=== PATIENT | male | born 1995 | race Caucasian/White ===

== ENCOUNTER 2016-08-25 01:19 | Emergency (ER) | payer BC ==
[2016-08-25 01:28] VITALS: BP 153/88
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
[2016-08-25] MEDS ORDERED: Metoclopramide 10 MG/2 ML SDV IVPUSH ONE (01:47)
[2016-08-25] MEDS ORDERED: HYDROmorphone 1 MG/ML Syringe IVPUSH ONE (01:47)
[2016-08-25] MEDS ORDERED: Acetaminophen 325 MG Tab PO ONE (01:47)
[2016-08-25] MEDS ORDERED: Ketorolac 30 MG/ML SDV IVPUSH SCH (02:00)
[2016-08-25] MEDS ORDERED: Dextrose 5%-0.9% NaCl 1,000 ML IV SCH (02:00)
[2016-08-25] MEDS ORDERED: Acetaminophen/oxyCODONE 325-5 MG Tab ONE (03:31)
--- NOTE | 2016-08-25 07:05 | CR ---
Chest: Portable view of the chest was obtained. Comparison: No previous study. Heart size and mediastinum are within normal limits for portable technique. Lungs are clear with no acute infiltrates. Bony structures are grossly intact. Impression: 1. No acute intrathoracic process is seen on portable chest x-ray. Diagnostic code #1
== END 2016-08-25 03:34 | disposition home or self-care (01) ==
LOC: JD.ED 01:19
DX: R51 Headache (principal); B34.9 Viral infection, unspecified
CPT/HCPCS: 36415; 71010; 80053; 83690; 84484; 85025; 86140; 86308; 87804; 93005; 96361; 96374; 96375; 99284; A9270; J1170; J1885; J2765; J7042

== ENCOUNTER 2016-10-07 20:36 | Emergency (ER) | payer BC ==
[2016-10-07 20:50] VITALS: BP 130/80
[2016-10-07] MEDS ORDERED: Sodium Chloride 0.9% 1,000 ML IV STA (21:01)
[2016-10-07] MEDS ORDERED: Sodium Chloride 0.9% 10 ML Syringe FLUSH PRN (21:01)
[2016-10-07] MEDS ORDERED: Ketorolac 30 MG/ML SDV IVPUSH ONE (21:06)
--- NOTE | 2016-10-07 21:14 | EDM.PDOC ---
ED HPI GENERAL MEDICAL PROBLEM - General Chief Complaint: General Stated Complaint: FEVER CHILLS COUGH Time Seen by Provider: 10/07/16 20:46 Source of Information: Reports: Patient History Limitations: Reports: No Limitations - History of Present Illness INITIAL COMMENTS - FREE TEXT/NARRATIVE: The patient presents with generalized weakness, fever and cough. He has not felt well for a few weeks. He has a fever and it was 100.2 today, productive cough, sore throat and gum pain, chest tightness, left sided abdominal pain at times and right foot pain. About 2 months ago he stepped on a akshat nail and was treated here and he still has pain. He has not been around anyone who is sick. He has no diarrhea or dysuria. He has on joint pain or muscle aches. He smokes sometimes. He has no medical problems but he says over this past year he has been more sick then ever before. Onset: Gradual Duration: Week(s): (2) Location: Reports: Abdomen, Other (throat) Quality: Reports: Burning Severity: Moderate Improves with: Reports: None Worsens with: Reports: None Associated Symptoms: Reports: Cough, cough w sputum, Fever/Chills, Nausea/ Vomiting. Denies: Shortness of Breath Headache Pain Score (Numeric/FACES): 5 - Related Data Allergies Allergy/AdvReac Type Severity Reaction Status Date / Time No Known Allergies Allergy Verified 10/07/16 20:50 Home Meds: Home Meds Codeine/Promethazine [Phenergan with Codeine] 5 - 10 ml PO Q6HR PRN #300 ml [Rx] Doxycycline [Vibramycin] 100 mg PO BID #20 cap 10/07/16 [Rx] Past Medical History - Past Health History Medical/Surgical History: Denies Medical/Surgical History Social & Family History - Family History Family Medical History: Noncontributory - Tobacco Use Smoking Status *Q: Current Some Day Smoker Years of Tobacco use: 5 Packs/Tins Daily: 0.1 Used Tobacco, but Quit: No - Caffeine Use Caffeine Use: Reports: None - Recreational Drug Use Recreational Drug Use: No - Living Situation & Occupation Living situation: Reports: Single Occupation: Employed ED ROS GENERAL - Review of Systems Review Of Systems: See Below Constitutional: Reports: Fever, Chills, Malaise, Weakness HEENT: Reports: Dental Pain, Throat Pain Respiratory: Reports: Cough, Sputum. Denies: Shortness of Breath Cardiovascular: Reports: No Symptoms Endocrine: Reports: No Symptoms GI/Abdominal: Reports: Abdominal Pain, Nausea. Denies: Diarrhea, Vomiting : Reports: No Symptoms Musculoskeletal: Reports: No Symptoms Skin: Reports: No Symptoms ED EXAM, GENERAL - Physical Exam Exam: See Below Exam Limited By: No Limitations General Appearance: Alert, No Apparent Distress Ears: Normal External Exam, Normal Canal, Normal TMs Nose: Normal Inspection Throat/Mouth: Other (Moderte tonsilar edema and erythema with pharyngeal erythema) Head: Atraumatic, Normocephalic Neck: Lymphadenopathy (L), Lymphadenopathy (R) Respiratory/Chest: No Respiratory Distress, Lungs Clear, Normal Breath Sounds Cardiovascular: Regular Rate, Rhythm, No Edema, No Murmur GI/Abdominal: Soft, Non-Tender, No Organomegaly, No Mass Back Exam: Normal Inspection Extremities: Other (Scar to the instep of his right foot. Good sensation and pulses distally.) Neurological: Alert, Oriented, No Motor/Sensory Deficits Course - Vital Signs Last Recorded V/S: Last Vital Signs Temp 100.2 F 10/07/16 20:45 Pulse 91 10/07/16 20:45 Resp 18 10/07/16 20:45 BP 130/80 10/07/16 20:45 Pulse Ox 98 10/07/16 20:45 - Orders/Labs/Meds Orders: Active Orders 24 hr Category Date Time Status Peripheral IV Care [RC] . DIRECTED Care 10/07/16 21:05 Active Chest 2V [CR] Stat Exams 10/07/16 21:01 Taken Foot Comp Min 3V Rt [CR] Stat Exams 10/07/16 21:07 Taken CULTURE STREP A CONFIRMATION [RM] Stat Lab 10/07/16 21:26 Results STREP SCRN A RAPID W CULT CONF [RM] Stat Lab 10/07/16 21:26 Results Sodium Chloride 0.9% [Saline Flush] Med 10/07/16 21:01 Active 10 ml FLUSH ASDIRECTED PRN Peripheral IV Insertion Adult [OM.PC] Stat Oth 10/07/16 21:01 Ordered Medication Orders Sodium Chloride (Saline Flush) 10 ml FLUSH ASDIRECTED PRN PRN Reason: Keep Vein Open Last Admin: 10/07/16 21:27 Dose: 10 ml Labs: Laboratory Tests 10/07/16 10/07/16 10/07/16 Range/Units 21:26 21:26 21:26 WBC 9.08 H (4.23-9.07) K/mm3 RBC 4.81 (4.63-6.08) M/mm3 Hgb 15.2 (13.7-17.5) gm/L Hct 44.4 (40.1-51.0) % MCV 92.3 H (79.0-92.2) fl MCH 31.6 (25.7-32.2) pg MCHC 34.2 (32.2-35.5) g/dl RDW Std Deviation 44.0 H (35.1-43.9) fL Plt Count 177 (163-337) K/mm3 MPV 9.7 (9.4-12.3) fl Neut % (Auto) 57.2 (34.0-67.9) % Lymph % (Auto) 24.3 (21.8-53.1) % Bertie % (Auto) 18.0 H (5.3-12.2) % Eos % (Auto) 0.1 L (0.8-7.0) Baso % (Auto) 0.2 (0.1-1.2) % Neut # (Auto) 5.19 (1.78-5.38) K/mm3 Lymph # (Auto) 2.21 (1.32-3.57) K/mm3 Bertie # (Auto) 1.63 H (0.30-0.82) K/mm3 Eos # (Auto) 0.01 L (0.04-0.54) K/mm3 Baso # (Auto) 0.02 (0.01-0.08) K/mm3 Manual Slide Review Abnormal smear Sodium 135 L (136-145) mEq/L Potassium 4.1 (3.5-5.1) mEq/L Chloride 100 (98-107) mEq/L Carbon Dioxide 24 (21-32) mEq/L Anion Gap 15.1 H (5-15) BUN 16 (7-18) mg/dL Creatinine 1.1 (0.7-1.3) mg/dL Est Cr Clr Drug Dosing TNP Estimated GFR (MDRD) > 60 (>60) mL/min BUN/Creatinine Ratio 14.5 (14-18) Glucose 83 (74-106) mg/dL Calcium 8.3 L (8.5-10.1) mg/dL Total Bilirubin 0.5 (0.2-1.0) mg/dL AST 35 (15-37) U/L ALT 42 (16-63) U/L Alkaline Phosphatase 75 (46-116) U/L C-Reactive Protein 4.7 H* (<1.0) mg/dL Total Protein 7.7 (6.4-8.2) g/dl Albumin 3.8 (3.4-5.0) g/dl Globulin 3.9 gm/dL Albumin/Globulin Ratio 1.0 (1-2) Monoscreen Negative (NEGATIVE) Meds: Medications Generic Name Dose Route Start Last Admin Trade Name Freq PRN Reason Stop Dose Admin Sodium Chloride 10 ml 10/07/16 21:01 10/07/16 21:27 Saline Flush FLUSH 10 ml ASDIRECTED PRN Administration Keep Vein Open Discontinued Medications Generic Name Dose Route Start Last Admin Trade Name Freq PRN Reason Stop Dose Admin Sodium Chloride 1,000 mls @ 1,000 mls/hr 10/07/16 21:01 10/07/16 21:26 Normal Saline IV 10/07/16 22:00 1,000 mls/hr .BOLUS STA Administration Ketorolac Tromethamine 30 mg 10/07/16 21:06 10/07/16 21:28 Toradol IVPUSH 10/07/16 21:07 30 mg ONETIME ONE Administration - Re-Assessments/Exams Free Text/Narrative Re-Assessment/Exam: 10/07/16 21:14 I ordered an IV NS 1L bolus, toradol 30mg IV, labs, CXR, right foot x-ray, mono and strep. 10/07/16 22:11 He vomited in radiology when getting his x-ray. He feels better now. His WBC was a little elevated at 9.08. His Na was a little low at 135. His CRP was elevated at 4.7. His mono was negative. His strep was negative. His foot x- ray shows no sign of osteomyolitis. His CXR shows no pneumonia. He has bronchitis and pharyngitis. I will get him on some doxycycline and phenergan with codiene. Departure - Departure Time of Disposition: 22:15 Disposition: Home, Self-Care 01 Condition: Good Clinical Impression: Bronchitis Pharyngitis Qualifiers: Pharyngitis/tonsillitis etiology: other specified organisms Qualified Code(s): J02.8 - Acute pharyngitis due to other specified organisms - Discharge Information Prescriptions: Codeine/Promethazine [Phenergan with Codeine] 5 - 10 ml PO Q6HR PRN #300 ml PRN Reason: Cough Doxycycline [Vibramycin] 100 mg PO BID #20 cap Referrals: Robina Weeks [Physician] - 1 Week (If not better) Forms: ED Department Discharge Additional Instructions: Take the doxycycline 100mg 2 times per day for 10 days. Take the phenergan with codeine 5 to 10mls every 6 hours as needed for a cough. Drink plenty of fluids. Follow up with Dr Weeks in 1 week if not better. Please return if you are worse. - My Orders Last 24 Hours: My Active Orders 10/07/16 21:01 Chest 2V [CR] Stat Sodium Chloride 0.9% [Saline Flush] 10 ml FLUSH ASDIRECTED PRN Peripheral IV Insertion Adult [OM.PC] Stat 10/07/16 21:05 Peripheral IV Care [RC] . DIRECTED 10/07/16 21:07 Foot Comp Min 3V Rt [CR] Stat 10/07/16 21:26 CULTURE STREP A CONFIRMATION [RM] Stat STREP SCRN A RAPID W CULT CONF [] Stat - Assessment/Plan Last 24 Hours: My Active Orders 10/07/16 21:01 Chest 2V [CR] Stat Sodium Chloride 0.9% [Saline Flush] 10 ml FLUSH ASDIRECTED PRN Peripheral IV Insertion Adult [OM.PC] Stat 10/07/16 21:05 Peripheral IV Care [RC] . DIRECTED 10/07/16 21:07 Foot Comp Min 3V Rt [CR] Stat 10/07/16 21:26 CULTURE STREP A CONFIRMATION [RM] Stat STREP SCRN A RAPID W CULT CONF [RM] Stat
--- NOTE | 2016-10-08 07:46 | CR ---
Chest: Two views of the chest were obtained. Comparison: Previous chest x-ray of 08/25/16. Heart size and mediastinum are normal. Lungs are clear. Bony structures are unremarkable. Impression: 1. Nothing acute is identified on two-view chest x-ray. Diagnostic code #1
--- NOTE | 2016-10-08 08:21 | CR ---
Right foot: Four views of the right foot were obtained. Comparison: No previous study. Joint spaces are maintained. No fracture, dislocation or other bony abnormality is seen. Small soft tissue injury seen near the ball of the foot. No opaque foreign body is seen. Impression: 1. Small soft tissue defect near the ball of the foot. Please correlate. 2. No bony abnormality is seen. No opaque foreign object is identified. Diagnostic code #2
== END 2016-10-07 22:43 | disposition home or self-care (01) ==
LOC: JD.ED 20:36
DX: J40 Bronchitis, not specified as acute or chronic (principal); J02.8 Acute pharyngitis due to other specified organisms; F17.210 Nicotine dependence, cigarettes, uncomplicated
CPT/HCPCS: 36415; 71020; 73630; 80053; 85025; 86140; 86308; 87081; 87430; 96361; 96374; 99284; J1885; J7040; J7050

== ENCOUNTER 2018-10-19 05:12 | Emergency (ER) | payer BC ==
[2018-10-19 05:27] VITALS: BP 134/77
[2018-10-19] MEDS ORDERED: Loperamide 2 MG Cap PO STA (05:39)
[2018-10-19] MEDS ORDERED: Ondansetron 4 MG/2 ML SDV IVPUSH ONE (05:40)
[2018-10-19] MEDS ORDERED: Lactated Ringers 1,000 ML IV ONE (05:40)
--- NOTE | 2018-10-19 05:46 | EDM.PDOC ---
ED HPI GENERAL MEDICAL PROBLEM - General Chief Complaint: Gastrointestinal Problem Stated Complaint: diarrhea Time Seen by Provider: 10/19/18 05:23 Source of Information: Reports: Patient, Family (), RN Notes Reviewed History Limitations: Reports: No Limitations - History of Present Illness INITIAL COMMENTS - FREE TEXT/NARRATIVE: The patient states that both he and his developed nausea, vomiting, and watery diarrhea about one week ago. Their symptoms lasted for only about 24 hours before resolving. The patient's 's symptoms were severe enough that she was seen in an ER, although the patient was not, and the patient did not take any [id number] medications to treat his symptoms. The patient states that he then developed watery, non-bloody diarrhea about 48 hours ago. His , this time, did not. He developed central abdominal burning and crampiness last night, along with nausea and lightheadedness, particularly when upright. No emesis thus far. No recent fever. The patient states that he ate some sandwiches that had been left out in the sun all day just prior to the onset of his most recent symptoms. No recent antibiotics. No recent travel. No prior similar symptoms. The patient states that he has a PCP, but he does not recall his name. Lower Abdomen Pain Score (Numeric/FACES): 5 - Related Data Allergies Allergy/AdvReac Type Severity Reaction Status Date / Time No Known Allergies Allergy Verified 10/19/18 05:28 Home Meds: Home Meds Ondansetron [Zofran ODT] 1 tab PO Q8H PRN #10 tab.dis 10/19/18 [Rx] Past Medical History - Past Surgical History HEENT Surgical History: Reports: Oral Surgery (wisdom teeth extraction) Social & Family History - Family History Family Medical History: Noncontributory - Tobacco Use Smoking Status *Q: Former Smoker Years of Tobacco use: 8 Packs/Tins Daily: 1 Month/Year Tobacco Last Used: Quit July 2018 - Caffeine Use Caffeine Use: Reports: Coffee, Energy Drinks, Soda - Alcohol Use Alcohol Use History: Yes Alcohol Use Frequency: Rarely - Recreational Drug Use Recreational Drug Use: No - Living Situation & Occupation Living situation: Reports: , with Spouse, with Family (2 kids) Occupation: Employed ([employer]) ED ROS GENERAL - Review of Systems Review Of Systems: ROS reveals no pertinent complaints other than HPI. ED EXAM, GI/ABD - Physical Exam Exam: See Below Exam Limited By: No Limitations General Appearance: Alert, WD/WN, No Apparent Distress Eyes: Bilateral: Normal Appearance, EOMI Ears: Normal External Exam, Hearing Grossly Normal Nose: Normal Inspection Throat/Mouth: Normal Inspection, Normal Lips, Normal Voice, No Airway Compromise Head: Atraumatic, Normocephalic Neck: Normal Inspection, Full Range of Motion Respiratory/Chest: No Respiratory Distress, Lungs Clear, Normal Breath Sounds, No Accessory Muscle Use Cardiovascular: Normal Peripheral Pulses, Regular Rate, Rhythm, No Edema, No Gallop, No JVD, No Murmur, No Rub GI/Abdominal Exam: Normal Bowel Sounds, Soft, No Organomegaly, No Distention, No Abnormal Bruit, No Mass, Tender (mild - palpation primarily induces the urge to defecate) (Male) Exam: Deferred Rectal (Males) Exam: Deferred Back Exam: Normal Inspection, Full Range of Motion. No: CVA Tenderness (L), CVA Tenderness (R) Extremities: Normal Inspection, Normal Range of Motion, No Pedal Edema, Normal Capillary Refill Neurological: Alert, Oriented, Normal Cognition, No Motor/Sensory Deficits Psychiatric: Normal Affect Skin Exam: Warm, Dry, Intact, Normal Color, No Rash Course - Vital Signs Last Recorded V/S: Last Vital Signs Temp 36.0 C 10/19/18 05:20 Pulse 68 10/19/18 05:20 Resp 16 10/19/18 05:20 BP 134/77 10/19/18 05:20 Pulse Ox 93 L 10/19/18 05:20 Orthostatic Blood Pressure [ 126/78 Supine] Orthostatic Blood Pressure [ 122/78 Standing] - Orders/Labs/Meds Orders: Active Orders 24 hr Category Date Time Status Orthostatic Vital Signs [RC] STAT Care 10/19/18 05:30 Active Orthostatic Vital Signs [RC] STAT Care 10/19/18 05:39 Active CBC WITH MANUAL DIFF [HEME] Stat Lab 10/19/18 05:45 Results Lactated Ringers [Ringers, Lactated] 1,000 ml Med 10/19/18 05:40 Active IV .BOLUS Medication Orders Lactated Ringer's (Ringers, Lactated) 1,000 mls @ 999 mls/hr IV .BOLUS ONE Stop: 10/19/18 06:40 Last Admin: 10/19/18 05:50 Dose: 999 mls/hr Labs: Laboratory Tests 10/19/18 10/19/18 Range/Units 05:45 05:45 WBC 8.11 (4.23-9.07) K/mm3 RBC 5.31 (4.63-6.08) M/mm3 Hgb 16.1 (13.7-17.5) gm/L Hct 47.1 (40.1-51.0) % MCV 88.7 D (79.0-92.2) fl MCH 30.3 (25.7-32.2) pg MCHC 34.2 (32.2-35.5) g/dl RDW Std Deviation 42.7 (35.1-43.9) fL Plt Count 310 D (163-337) K/mm3 MPV 9.6 (9.4-12.3) fl Sodium 139 (136-145) mEq/L Potassium 3.6 (3.5-5.1) mEq/L Chloride 103 (98-107) mEq/L Carbon Dioxide 27 (21-32) mEq/L Anion Gap 12.6 (5-15) BUN 20 H (7-18) mg/dL Creatinine 1.2 (0.7-1.3) mg/dL Est Cr Clr Drug Dosing 109.41 mL/min Estimated GFR (MDRD) > 60 (>60) mL/min BUN/Creatinine Ratio 16.7 (14-18) Glucose 109 H (74-106) mg/dL Calcium 9.3 (8.5-10.1) mg/dL Magnesium 1.9 (1.8-2.4) mg/dl Total Bilirubin 0.3 (0.2-1.0) mg/dL AST 37 (15-37) U/L ALT 118 H (16-63) U/L Alkaline Phosphatase 101 (46-116) U/L Total Protein 7.6 (6.4-8.2) g/dl Albumin 4.2 (3.4-5.0) g/dl Globulin 3.4 gm/dL Albumin/Globulin Ratio 1.2 (1-2) Meds: Medications Generic Name Dose Route Start Last Admin Trade Name Freq PRN Reason Stop Dose Admin Lactated Ringer's 1,000 mls @ 999 mls/hr 10/19/18 05:40 10/19/18 05:50 Ringers, Lactated IV 10/19/18 06:40 999 mls/hr .BOLUS ONE Administration Discontinued Medications Generic Name Dose Route Start Last Admin Trade Name Russ PRN Reason Stop Dose Admin Loperamide HCl 4 mg 10/19/18 05:39 10/19/18 05:51 Imodium PO 10/19/18 05:40 4 mg ONETIME STA Administration Ondansetron HCl 4 mg 10/19/18 05:40 10/19/18 05:51 Zofran IVPUSH 10/19/18 05:41 4 mg ONETIME ONE Administration - Re-Assessments/Exams Free Text/Narrative Re-Assessment/Exam: 10/19/18 05:41 With the patient's history of eating some sandwiches that had been left out in the sun all day just before the onset of his symptoms, I think the likelihood is high that the patient is suffering from gastroenteritis due to a bacterial toxin. Antibiotics are not indicated. The patient is orthostatic, therefore we will give him a liter of IV fluid before rechecking his orthostatics. I will also check some blood work, to make sure that he has not suffered any significant electrolyte abnormalities. In the meantime, he will receive some loperamide and Zofran. 10/19/18 06:33 Following 1 L of IV fluid, the patient is no longer orthostatic. The patient's CBC is unremarkable. His CMP is unremarkable. His magnesium level is within normal limits. I will discharge the patient home with a prescription for Zofran, along with dietary advice. Loperamide is available [id number]. Departure - Departure Time of Disposition: 06:39 Disposition: Home, Self-Care 01 Condition: Good Clinical Impression: Gastroenteritis - Discharge Information *PRESCRIPTION DRUG MONITORING PROGRAM REVIEWED*: Not Applicable *COPY OF PRESCRIPTION DRUG MONITORING REPORT IN PATIENT CARL: Not Applicable Referrals: PCP,None [Primary Care Provider] - Forms: ED Department Discharge Additional Instructions: You were seen in the emergency room for nausea, watery diarrhea, and dizziness when upright, for the last 48 hours. Workup in the ER included blood work and positional blood pressure checks. Your blood work was unremarkable, indicating no significant electrolyte abnormalities, however, your blood pressure dropped excessively between lying and standing, indicating that you were intravascularly dry. Based on your history, physical exam, and ER tests, you are most likely suffering from gastroenteritis from a bacterial toxin. Unfortunately, there are no medicines to get rid of a bacterial toxin - it will have to run its course - however, there are medicines that you can take to treat the symptoms. You were given 1 L of IV fluid in the ER, and your blood pressures normalized. You were given 2 tablets (4 mg) of the anti-diarrheal medicine loperamide ( Imodium) in the ER. Loperamide is available [id number]. You may take one tablet (2 mg) after each loose bowel movement, to a maximum of 8 tablets (16 mg ) within a 24-hour period. A prescription for the anti-nausea medicine Zofran has been sent to [facility], located in the [facility] across the [address] from the hospital. Dissolve 1 tablet of Zofran on your tongue up to every 8 hours, as needed for nausea/vomiting. Stay adequately hydrated. Gatorade or Powerade are best. Avoid juice and milk, as these may make your diarrhea worse. If you are hungry, chicken noodle soup with saltine crackers is excellent. You may also try rice, oatmeal, bananas, or toast. If any other problems, please do not hesitate to return to the ER. - My Orders Last 24 Hours: My Active Orders 10/19/18 05:30 Orthostatic Vital Signs [RC] STAT 10/19/18 05:39 Orthostatic Vital Signs [RC] STAT 10/19/18 05:40 Lactated Ringers [Ringers, Lactated] 1,000 ml IV .BOLUS 10/19/18 05:45 CBC WITH MANUAL DIFF [HEME] Stat - Assessment/Plan Last 24 Hours: My Active Orders 10/19/18 05:30 Orthostatic Vital Signs [RC] STAT 10/19/18 05:39 Orthostatic Vital Signs [RC] STAT 10/19/18 05:40 Lactated Ringers [Ringers, Lactated] 1,000 ml IV .BOLUS 10/19/18 05:45 CBC WITH MANUAL DIFF [HEME] Stat
== END 2018-10-19 06:57 | disposition home or self-care (01) ==
LOC: JD.ED 05:12
DX: K52.9 Noninfective gastroenteritis and colitis, unspecified (principal); Z87.891 Personal history of nicotine dependence
CPT/HCPCS: 36415; 80053; 83735; 85007; 85027; 96374; 99284; A9270; J2405; J7120

== ENCOUNTER 2023-03-30 10:11 | Emergency (ER) | payer OTHER ==
[2023-03-30 11:54] VITALS: BP 122/65; PULSE 72
== END 2023-03-30 11:50 | disposition home or self-care (01) ==
LOC: JD.ED 10:11
DX: M79.605 Pain in left leg (principal); F17.210 Nicotine dependence, cigarettes, uncomplicated; W22.8XXA Striking against or struck by other objects, initial encounter; Y92.89 Other specified places as the place of occurrence of the external cause
CPT/HCPCS: 73590-26-LT; 73590-LT; 99283

== ENCOUNTER 2025-03-04 13:56 | Emergency (ER) | payer OTHER ==
[2025-03-04 14:51] VITALS: PULSE 72
[2025-03-04 15:31] VITALS: BP 132/88
== END 2025-03-04 14:59 | disposition home or self-care (01) ==
LOC: JD.ED 13:56
DX: S16.1XXA Strain of muscle, fascia and tendon at neck level, initial encounter (principal); S00.83XA Contusion of other part of head, initial encounter; S00.03XA Contusion of scalp, initial encounter; W11.XXXA Fall on and from ladder, initial encounter
CPT/HCPCS: 99283